=== PATIENT | male | born 1975 | race Caucasian/White ===

== ENCOUNTER 2017-07-26 20:22 | Emergency (ER) | payer OTHER ==
[2017-07-26 20:45] LABS: Appearance,Urine Clear (Clear); Bilirubin,Urine Negative (Negative); Blood,Urine Trace (Negative); Color,Urine Yellow; Glucose,Urine (UA) Negative (Negative); Hyaline Casts,Urine 7 /lpf (0-2); Ketones,Urine Negative (Negative); Leukocyte Esterase,Urine Negative (Negative); Mucus,Urine Many /hpf; Nitrite,Urine Negative (Negative); Protein,Urine 1+ (Negative); RBC,Urine 2 /hpf (0-5); Specific Gravity,Urine 1.028 (1.001-1.035); Squamous Epithelial Cell,Urine <1 /hpf (0-4); WBC,Urine 2 /hpf (0-5)
--- NOTE | 2017-07-26 20:45 | ED ---
General Adult HPI - General Chief complaint: Urogenital Stated complaint: poss hernia Time Seen by Provider: 07/26/17 20:35 Source: patient, RN notes reviewed Mode of arrival: ambulatory Limitations: no limitations - History of Present Illness Initial comments: Patient 41-year-old male who presents emergency room today with his chief complaint of testicle pain times one week. He does admit to some pain and pressure with both urination and bowel movements. States it began approximately one week ago. States he noticed it immediately after intercourse. Patient states she's had some irritation since. He states it reminds mild epididymitis that he had a longtime ago. States he was at urgent care who advised come here to the emergency room. Patient denies any drainage or discharge. He denies any swelling. He denies any other complaints. Patient denies any recent fever, chills, shortness of breath, chest pain, back pain, numbness or tingling, dysuria or hematuria, constipation or diarrhea, headaches or visual changes, or any other complaints. - Related Data Home Medications Medication Instructions Recorded Confirmed DULoxetine HCL [Cymbalta] 60 mg PO DAILY 07/26/17 07/26/17 Allergies Allergy/AdvReac Type Severity Reaction Status Date / Time No Known Allergies Allergy Verified 07/26/17 20:31 Review of Systems ROS Statement: Those systems with pertinent positive or pertinent negative responses have been documented in the HPI. ROS Other: All systems not noted in ROS Statement are negative. Past Medical History Past Medical History: No Reported History History of Any Multi-Drug Resistant Organisms: None Reported Past Surgical History: No Surgical Hx Reported Past Psychological History: Depression Smoking Status: Never smoker Past Alcohol Use History: Occasional Past Drug Use History: Marijuana General Exam - General Exam Comments Initial Comments: General: The patient is awake and alert, in no distress, and does not appear acutely ill. Eye: Pupils are equal, round and reactive to light, extra-ocular movements are intact. No nystagmus. There is normal conjunctiva bilaterally. No signs of icterus. Ears, nose, mouth and throat: There are moist mucous membranes and no oral lesions. Neck: The neck is supple, there is no tenderness or JVD. Cardiovascular: There is a regular rate and rhythm. No murmur, rub or gallop is appreciated. Respiratory: Lungs are clear to auscultation, respirations are non-labored, breath sounds are equal. No wheezes, stridor, rales, or rhonchi. Gastrointestinal: Soft, non-distended, non-tender abdomen without masses or organomegaly noted. There is no rebound or guarding present. No CVA tenderness. Musculoskeletal: Normal ROM, no tenderness. Strength 5/5. Sensation intact. Pulses equal bilaterally 2+. Neurological: A&O x 3. CN II-XII intact, There are no obvious motor or sensory deficits. Coordination appears grossly intact. Speech is normal. Skin: Skin is warm and dry and no rashes or lesions are noted. Psychiatric: Cooperative, appropriate mood & affect, normal judgment. Limitations: no limitations Course Vital Signs 07/26/17 20:26 Temperature 100.2 F H Pulse Rate 77 Respiratory 18 Rate Blood Pressure 150/77 O2 Sat by Pulse 99 Oximetry Medical Decision Making - Medical Decision Making Case discussed in detail with attending physician Dr. Underwood. Patient reexamined at this time shows no signs of distress. His vitals are stable here in emergency room repeat temperature at this time is 98.6. Patient was given Tylenol Motrin emergency room has not taken this earlier today. Patient urinalysis showing no sign of infection at this time cultures are currently pending. Patient mitts that the symptoms started with intercourse one week ago. States he's felt increased pressure with urinating and bowel movements. Currently, at this time it a stretcher. His ultrasound does show no evidence for torsion. Show evidence for varicoceles bilaterally. Results were discussed with the patient. He is advised to use briefs for elevation. Use anti-inflammatories. Advised follow-up urologist over the next 2 days return here to the emergency room if symptoms increase or worsen. - Lab Data Lab Results 07/26/17 Range/Units 20:36 Urine Color Yellow Urine Appearance Clear (Clear) Urine pH 6.0 (5.0-8.0) Ur Specific Cameron 1.028 (1.001-1.035) Urine Protein 1+ H (Negative) Urine Glucose (UA) Negative (Negative) Urine Ketones Negative (Negative) Urine Blood Trace H (Negative) Urine Nitrite Negative (Negative) Urine Bilirubin Negative (Negative) Urine Urobilinogen 3.0 (<2.0) mg/dL Ur Leukocyte Esterase Negative (Negative) Urine RBC 2 (0-5) /hpf Urine WBC 2 (0-5) /hpf Ur Squamous Epith Cells <1 (0-4) /hpf Hyaline Casts 7 H (0-2) /lpf Urine Mucus Many H (None) /hpf Disposition Clinical Impression: Bilateral varicoceles Disposition: HOME SELF-CARE Condition: Good Instructions: Varicocele (ED) Additional Instructions: Please use anti-inflammatories for pain. Please use briefs for elevation. Please follow-up with family doctor and urologist over the next 2 days. Please return to emergency room symptoms increase or worsen. Referrals: Mandeep Carver DO [Primary Care Provider] - 1-2 days Gabriel Cherry MD [STAFF PHYSICIAN] - 1-2 days Time of Disposition: 22:43
[2017-07-26 22:51] VITALS: BP 171/85; PULSE 91; RESP 20; TEMP 98.6
--- NOTE | 2017-07-26 22:55 | US ---
EXAMINATION TYPE: US scrotum with doppler. Grayscale and color Doppler Duplex imaging performed of jessica alejandro scrotum. DATE OF EXAM: 07/26/2017 COMPARISON: NONE CLINICAL HISTORY: Pain. Testicular pain x 1 week, greater on the left side, gets worse during bowel m ovement, patient states no swelling EXAM MEASUREMENTS: TESTICLES: Right Testicle: 2.8 x 1.8 x 1.9 cm Left Testicle: 2.6 x 1.5 x 2.2 cm EPIDIDYMIS HEAD: Right Epididymis: 1.2 x 0.6 x 1.1 cm Left Epididymis: 1.1 x 1.0 x 1.6 cm Doppler performed to assess for testicular vascularity; good bilateral color flow and waveforms seen with left testicle, good arterial flow seen within right testicle, unable to obtain venous flow withi n right testicle. Left testicle: 1.6 x 1.2 x 1.4cm hypoechoic vascular area within left testicle with 2 small echogen ic foci largest measuring 0.1cm Presence of hydroceles: no Presence of varicoceles: bilateral prominent vessels that increase with valsalva IMPRESSION: No evidence of testicular torsion. There is a hypoechoic 1.4 cm solid area in the left te sticle with probably some calcifications. This is suspicious for tumor. Follow-up is recommended. The re is mild bilateral varicocele.
[2017-07-28 11:51] LABS: Chlamydia trachomatis rRNA Not detected (Not detected); Neisseria gonorrhoeae rRNA Not detected (Not detected)
== END 2017-07-26 22:51 | disposition home or self-care (01) ==
LOC: EC 20:22
DX: I86.1 Scrotal varices (principal); F32.9 Major depressive disorder, single episode, unspecified; Z87.438 Personal history of other diseases of male genital organs; Z79.899 Other long term (current) drug therapy
CPT/HCPCS: 76870; 81001; 87086; 87491; 87591; 93975; 99284

== ENCOUNTER → 2020-05-17 | Outpatient (CLI) | payer OTHER ==
[2020-05-17 09:11] LABS: Basophils % (A) 1 %; Eosinophils # (A) 0.2 k/uL (0-0.7); Eosinophils % (A) 4 %; HCT 44.6 % (39.0-53.0); HGB 14.8 gm/dL (13.0-17.5); Lymphocytes # (A) 1.8 k/uL (1.0-4.8); Lymphocytes % (A) 29 %; MCH 28.7 pg (25.0-35.0); MCHC 33.1 g/dL (31.0-37.0); MCV 86.6 fL (80.0-100.0); Mean Platelet Volume 8.3; Monocytes # (A) 0.4 k/uL (0-1.0); Monocytes % (A) 7 %; Neutrophils # (A) 3.5 k/uL (1.3-7.7); Neutrophils % (A) 58 %; Platelet Count 220 k/uL (150-450); RBC 5.15 m/uL (4.30-5.90); RDW 12.7 % (11.5-15.5); WBC 6.1 k/uL (3.8-10.6)
== END | disposition home or self-care (01) ==
LOC: LABWHC1 08:38
PROVIDERS: ATTEND Family Medicine Addiction Medicine
DX: I10 Essential (primary) hypertension (principal); F41.9 Anxiety disorder, unspecified; F31.9 Bipolar disorder, unspecified; L30.9 Dermatitis, unspecified
CPT/HCPCS: 36415; 80164; 85025

== ENCOUNTER 2023-01-23 14:21 | Emergency (ER) | payer OTHER ==
[2023-01-23 14:27] VITALS: RESP 22
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
[2023-01-23 16:25] LABS: Amphetamine Screen,Urine Not Detected (NotDetected); Barbiturate Screen,Urine Not Detected (NotDetected); Benzodiazepines Screen,Urine Not Detected (NotDetected); Cocaine Screen,Urine Not Detected (NotDetected); Methadone Screen, Urine Not Detected (NotDetected); Opiate Screen,Urine Not Detected (NotDetected); Oxycodone Screen, Urine Not Detected (NotDetected); Phencyclidine Screen,Urine Not Detected (NotDetected); Tricyclic Antidepressant,Urine Not Detected (NotDetected); Urn Cannabinoid Scrn Detected (NotDetected)
[2023-01-23 18:14] VITALS: BP 149/83; PULSE 85; TEMP 98.1
[2023-01-23] MEDS ORDERED: LORazepam 1 MG TAB PO STA (19:52)
== END 2023-01-23 20:41 | disposition home or self-care (01) ==
LOC: EC 14:21
DX: F41.9 Anxiety disorder, unspecified (principal); F32.A Depression, unspecified; F12.90 Cannabis use, unspecified, uncomplicated; Z79.899 Other long term (current) drug therapy
CPT/HCPCS: 80306; 82075; 99285

== ENCOUNTER 2023-05-20 07:46 | Day surgery (SDC) | payer OTHER ==
[~2023-05-20 07:46] MED LIST: LACTATED RINGERS 1,000 ML IV SCH; LIDOCAINE 1% (10MG/ML) FOR IV START INTRADERMA PRN
[2023-05-20 09:11] VITALS: TEMP 97.3
[2023-05-20] MEDS ORDERED: PROPOFOL 10 MG/ML 20 ML VIAL IV ONE (09:43)
[2023-05-20] MEDS ORDERED: LIDOCAINE 1% INJ 10MG/ML (20 ML MDV) ONE (09:43)
--- NOTE | 2023-05-20 10:04 | P.PCN ---
Date of Procedure: 05/20/23 Procedure(s) Performed: BRIEF HISTORY: Patient is a 47-year-old pleasant white male scheduled for an elective colonoscopy as a part of screening for colon cancer. PROCEDURE PERFORMED: Colonoscopy with biopsy. PREOPERATIVE DIAGNOSIS: Screening for colon cancer. IV sedation per Anesthesia. PROCEDURE: After informed consent was obtained, the patient, was brought into the endoscopy unit. IV sedation was administered by Anesthesia under continuous monitoring. Digital rectal examination was normal. Initially the Olympus CF-160 flexible video colonoscope was then inserted in the rectum, gradually advanced into the cecum without any difficulty. Careful examination was performed as the scope was gradually being withdrawn. Ileocecal valve and the appendiceal orifice were visualized and appeared normal. Prep was excellent. Mucosa of the cecum, ascending colon, transverse colon, descending colon, appeared normal. In the distal sigmoid colon there were patchy areas of erythema noted with mild sigmoid narrowing extending from 25-30 cm from the anal verge and biopsies were done from this area. Scattered sigmoid diverticulosis seen. Rest of the sigmoid colon, and rectum appeared normal. Retroflexion was performed in the rectum and no lesions were seen. The patient tolerated the procedure well. IMPRESSION: Scattered sigmoid diverticulosis Mild erythema noted in the distal sigmoid colon extending from 25-33 cm from the anal verge with mild sigmoid narrowing suspicious for diverticular related disease No evidence of colorectal neoplasia RECOMMENDATIONS: Findings of this examination were discussed with the patient well as his family. He was advised to be a high-fiber diet and take fiber supplements a regular basis and have a repeat screening colonoscopy in 10 years..
[2023-05-20 10:24] VITALS: BP 137/78; PULSE 53; RESP 16
== END 2023-05-20 10:56 | disposition home or self-care (01) ==
LOC: ORWHC2ENDO 07:46
PROVIDERS: ATTEND Internal Medicine Gastroenterology
DX: Z12.11 Encounter for screening for malignant neoplasm of colon (principal); K57.30 Diverticulosis of large intestine without perforation or abscess without bleeding; F12.90 Cannabis use, unspecified, uncomplicated; F43.10 Post-traumatic stress disorder, unspecified; F31.9 Bipolar disorder, unspecified; Z79.899 Other long term (current) drug therapy
CPT/HCPCS: 88305; 45380; J2001; J2704